=== PATIENT | male | born 1965 | race Caucasian/White ===

== ENCOUNTER 2021-05-08 09:24 | Day surgery (SDC) | payer BC, OTHER ==
[~2021-05-08 09:24] MED LIST: Albuterol 0.083% 2.5 MG/3 ML Neb Soln NEB PRN; HYDROmorphone 1 MG/ML Syringe IVPUSH PRN; Lactated Ringers 1,000 ML IV SCH; Metoclopramide 10 MG/2 ML SDV IVPUSH PRN; Morphine 2 MG/ML SYRINGE IVPUSH PRN; Naloxone 0.4 MG/ML SDV IVPUSH PRN; Ondansetron 4 MG/2 ML SDV IVPUSH PRN; Sodium Chloride 0.9% 10 ML Syringe FLUSH PRN; Sodium Chloride 0.9% 2.5 ML Syringe FLUSH PRN; Sodium Chloride 0.9% 20 ML SDV IV PRN; fentaNYL 100 MCG/2 ML SDV IVPUSH PRN
[2021-05-08] MEDS ORDERED: ceFAZolin 2 GM in Premix Bag 1 BAG IV ONE (10:18)
[2021-05-08] MEDS ORDERED: Bupivacaine 0.5% 30 ML SDV ONE (10:37)
[2021-05-08] MEDS ORDERED: Dexmedetomidine 200 MCG/2 ML SDV ONE (10:49)
[2021-05-08] MEDS ORDERED: Rocuronium Bromide 50 MG/5 ML Syringe ONE (10:49)
[2021-05-08] MEDS ORDERED: Lidocaine 2% 100 MG/5 ML Syringe ONE (10:49)
[2021-05-08] MEDS ORDERED: Dexamethasone 4 MG/ML 5 ML MDV ONE (10:49)
[2021-05-08] MEDS ORDERED: Propofol 200 MG/20 ML SDV ONE ×2 (10:50→13:59)
[2021-05-08] MEDS ORDERED: fentaNYL 100 MCG/2 ML SDV ONE ×2 (10:50→13:59)
[2021-05-08] MEDS ORDERED: Sodium Chloride 0.9% 20 ML ONE (10:53)
[2021-05-08] MEDS ORDERED: Midazolam 1 MG/ML 2 ML SDV ONE (10:55)
--- NOTE | 2021-05-08 11:14 | PCM.PREANE ---
Preanesthetic Assessment - Anesthesia/Transfusion/Family Hx Anesthesia History: Prior Anesthesia Without Reaction Family History of Anesthesia Reaction: No Transfusion History: No Prior Transfusion(s) - Review of Systems General: No Symptoms Pulmonary: No Symptoms Cardiovascular: No Symptoms Gastrointestinal: No Symptoms Neurological: No Symptoms Other: Reports: None - Physical Assessment NPO Status Date: 05/07/21 NPO Status Time: 21:00 Vital Signs: Last Vital Signs Temp 36 C L 05/08/21 09:44 Pulse 72 05/08/21 09:44 Resp 16 05/08/21 09:44 BP 141/77 H 05/08/21 09:44 Pulse Ox 100 05/08/21 09:44 Height: 5 ft 8 in Weight: 78.018 kg ASA Class: 3 Mental Status: Alert & Oriented x3 Dentition: Reports: Normal Dentition Thyro-Mental Finger Breadths: 3 Mouth Opening Finger Breadths: 3 ROM/Head Extension: Full Lungs: Clear to Auscultation, Normal Respiratory Effort Cardiovascular: Regular Rate, Regular Rhythm - Allergies Allergies/Adverse Reactions: Allergies Allergy/AdvReac Type Severity Reaction Status Date / Time No Known Allergies Allergy Verified 05/02/21 09:51 - Acknowledgements Anesthesia Type Planned: General Anesthesia Pt an Appropriate Candidate for the Planned Anesthesia: Yes Alternatives and Risks of Anesthesia Discussed w Pt/Guardian: Yes Pt/Guardian Understands and Agrees with Anesthesia Plan: Yes PreAnesthesia Questionnaire HEENT History: Reports: Other (See Below) Other HEENT History: wears glasses Cardiovascular History: Reports: Hypertension Respiratory History: Reports: None Gastrointestinal History: Reports: GERD, Hepatitis Other Gastrointestinal History: hx of hepatitis C, has been treated Genitourinary History: Reports: None Musculoskeletal History: Reports: Fracture, Osteoarthritis Other Musculoskeletal History: hx fx leg Neurological History: Reports: None Psychiatric History: Reports: None Endocrine/Metabolic History: Reports: None Hematologic History: Reports: None Immunologic History: Reports: None Oncologic (Cancer) History: Reports: None Dermatologic History: Reports: None - Past Surgical History Head Surgeries/Procedures: Reports: None HEENT Surgical History: Reports: None Cardiovascular Surgical History: Reports: None Respiratory Surgical History: Reports: None GI Surgical History: Reports: Hernia, Abdominal, Hernia, Inguinal Male Surgical History: Reports: None Endocrine Surgical History: Reports: None Neurological Surgical History: Reports: None Musculoskeletal Surgical History: Reports: Knee Replacement Other Musculoskeletal Surgeries/Procedures:: ryan knee replacements Oncologic Surgical History: Reports: None Dermatological Surgical History: Reports: None - SUBSTANCE USE Tobacco Use Status *Q: Current Every Day Tobacco User Tobacco Use Within Last Twelve Months: Cigarettes - HOME MEDS Home Medications: Home Meds Lisinopril/Hydrochlorothiazide [Lisinopril-Hctz 20-25 mg Tab] 1 tab PO DAILY 05/02/21 [History] Multivitamin 1 tab PO DAILY 05/02/21 [History] Omeprazole 20 mg PO DAILY 05/02/21 [History] Tamsulosin HCl 0.4 mg PO DAILY 05/02/21 [History] amLODIPine Besylate [Amlodipine Besylate] 5 mg PO DAILY 05/02/21 [History] - CURRENT (IN HOUSE) MEDS Current Meds: Current Medications Albuterol (Albuterol 0.083% 2.5 Mg/3 Ml Neb Soln) 2.5 mg NEB ONETIME PRN PRN Reason: Wheezing Droperidol (Droperidol 5 Mg/2 Ml Sdv) 0.625 mg IVPUSH ONETIME PRN PRN Reason: Nausea/Vomiting Fentanyl (Fentanyl 100 Mcg/2 Ml Sdv) 50 mcg IVPUSH Q5M PRN PRN Reason: Pain (mild 1-3) Hydromorphone HCl (Hydromorphone 1 Mg/Ml Syringe) 1 mg IVPUSH Q10M PRN PRN Reason: Pain (moderate 4-6) Lactated Ringer's (Ringers, Lactated) 1,000 mls @ 125 mls/hr IV ASDIRECTED THELMA Last Admin: 05/08/21 09:49 Dose: 125 mls/hr Documented by: Metoclopramide HCl (Metoclopramide 10 Mg/2 Ml Sdv) 10 mg IVPUSH ONETIME PRN PRN Reason: Nausea/Vomiting Morphine Sulfate (Morphine 2 Mg/Ml Syringe) 2 mg IVPUSH Q10M PRN PRN Reason: Pain (severe 7-10) Naloxone HCl (Naloxone 0.4 Mg/Ml Sdv) 0.1 mg IVPUSH ASDIRECTED PRN PRN Reason: Respiratory Depression Ondansetron HCl (Ondansetron 4 Mg/2 Ml Sdv) 4 mg IVPUSH ONETIME PRN PRN Reason: Nausea/Vomiting Sodium Chloride (Sodium Chloride 0.9% 10 Ml Syringe) 10 ml FLUSH ASDIRECTED PRN PRN Reason: Keep Vein Open Sodium Chloride (Sodium Chloride 0.9% 2.5 Ml Syringe) 2.5 ml FLUSH ASDIRECTED PRN PRN Reason: Keep Vein Open Sodium Chloride (Sodium Chloride 0.9% 20 Ml Sdv) 10 ml IV ASDIRECTED PRN PRN Reason: IV Use Discontinued Medications Bupivacaine HCl (Bupivacaine 0.5% 30 Ml Sdv) Confirm Administered Dose 30 ml .ROUTE .STK-MED ONE Stop: 05/08/21 10:38 Dexamethasone (Dexamethasone 4 Mg/Ml 5 Ml Mdv) Confirm Administered Dose 20 mg .ROUTE .STK-MED ONE Stop: 05/08/21 10:50 Dexmedetomidine HCl (Dexmedetomidine 200 Mcg/2 Ml Sdv) Confirm Administered Dose 200 mcg .ROUTE .STK-MED ONE Stop: 05/08/21 10:50 Fentanyl (Fentanyl 100 Mcg/2 Ml Sdv) Confirm Administered Dose 100 mcg .ROUTE .STK-MED ONE Stop: 05/08/21 10:51 Cefazolin Sodium/Dextrose 2 gm (/ Premix) 50 mls @ 100 mls/hr IV ONETIME ONE Stop: 05/08/21 10:47 Sodium Chloride (Normal Saline) Confirm Administered Dose 20 mls @ as directed .ROUTE .ST-MED ONE Stop: 05/08/21 10:54 Lidocaine HCl (Lidocaine 1% 5 Ml Sdv) Confirm Administered Dose 5 ml .ROUTE .STK-MED ONE Stop: 05/08/21 10:50 Lidocaine HCl (Lidocaine 2% 100 Mg/5 Ml Syringe) Confirm Administered Dose 100 mg .ROUTE .STK-MED ONE Stop: 05/08/21 10:50 Midazolam HCl (Midazolam 1 Mg/Ml 2 Ml Sdv) Confirm Administered Dose 2 mg .ROUTE .STK-MED ONE Stop: 05/08/21 10:56 Propofol (Propofol 200 Mg/20 Ml Sdv) Confirm Administered Dose 200 mg .ROUTE .STK-MED ONE Stop: 05/08/21 10:51 Rocuronium Alplaus (Rocuronium Alplaus 50 Mg/5 Ml Syringe) Confirm Administered Dose 50 mg .ROUTE .STK-MED ONE Stop: 05/08/21 10:50
[2021-05-08] MEDS ORDERED: ePHEDrine 50 MG/ML SDV ONE (12:55)
[2021-05-08] MEDS ORDERED: Ondansetron 4 MG/2 ML SDV ONE (13:08)
[2021-05-08] MEDS ORDERED: Ketorolac 30 MG/ML SDV ONE (13:08)
[2021-05-08] MEDS ORDERED: Sugammadex Sodium 200 MG/2 ML VIAL ONE (13:08)
[2021-05-08] MEDS ORDERED: Octyl 2-Cyanoacrylate 1 Tube ONE (13:27)
[2021-05-08] MEDS ORDERED: Lidocaine 2% 5 ML SDV ONE (13:58)
--- NOTE | 2021-05-08 14:03 | PCM48HPAN ---
Post Anesthesia Note - EVALUATION WITHIN 48HRS OF ANESTHETIC Vital Signs in Normal Range: Yes Patient Participated in Evaluation: Yes Respiratory Function Stable: Yes Airway Patent: Yes Cardiovascular Function Stable: Yes Hydration Status Stable: Yes Pain Control Satisfactory: Yes Nausea and Vomiting Control Satisfactory: Yes Mental Status Recovered: Yes Vital Signs: Last Vital Signs Temp 99.1 F 05/08/21 13:49 Pulse 55 L 05/08/21 13:59 Resp 10 L 05/08/21 13:59 BP 107/60 05/08/21 13:59 Pulse Ox 95 05/08/21 13:59
--- NOTE | 2021-05-08 14:03 | PCM.POSTAN ---
POST ANESTHESIA ASSESSMENT - MENTAL STATUS Mental Status: Alert, Oriented - VITAL SIGNS Vital Signs: Last Vital Signs Temp 99.1 F 05/08/21 13:49 Pulse 55 L 05/08/21 13:59 Resp 10 L 05/08/21 13:59 BP 107/60 05/08/21 13:59 Pulse Ox 95 05/08/21 13:59 - RESPIRATORY Respiratory Status: Respiratory Rate WNL, Airway Patent, O2 Saturation Stable - CARDIOVASCULAR CV Status: Pulse Rate WNL, Blood Pressure Stable - GASTROINTESTINAL GI Status: No Symptoms - POST OP HYDRATION Hydration Status: Adequate & Stable
--- NOTE | 2021-05-08 16:01 | PCM.OPNOTE ---
- General Post-Op/Procedure Note Date of Surgery/Procedure: 05/08/21 Operative Procedure(s): Recurrent ventral hernia repair Findings: 2 cm umbilical fascial defect containing omentum Pre Op Diagnosis: Recurrent ventral hernia Post-Op Diagnosis: same Anesthesia Technique: General ET Tube Primary Surgeon: Mel Cole Fluid Replacement, Intraop: 1,200 EBL in mLs: 10 Condition: Good Free Text/Narrative:: Intake & Output 05/08/21 05/08/21 05/08/21 06:59 14:59 22:59 Intake Total 1550 Balance 1550
--- NOTE | 2021-05-09 23:47 | OR ---
SURGEON: MEL COLE MD DATE OF PROCEDURE: 05/08/2021 PREOPERATIVE DIAGNOSIS: Recurrent ventral hernia. POSTOPERATIVE DIAGNOSIS: Recurrent ventral hernia. PROCEDURE PERFORMED: Repair of recurrent ventral hernia with mesh. PRIMARY SURGEON: Mel Cole MD ANESTHESIA: General endotracheal anesthesia. FLUIDS: 1200 mL of crystalloid. ESTIMATED BLOOD LOSS: 10 mL. FINDINGS: 2 cm fascial defect along the umbilical stalk. Hernia sac containing a large amount of incarcerated omentum. COMPLICATIONS: None. INDICATIONS: The patient is a 55-year-old male with a previous history of a large lower ventral hernia repair performed with mesh. The patient has lost a significant amount of weight and has been working out. He noticed a bulge along the umbilicus. This has gotten large over time. It is now very painful. CT scan showed a large hernia sac with a small fascial defect containing omentum. The patient and I discussed the need for a repair. I explained the procedure, expected perioperative course, as well as the possibility of mesh versus a non- mesh repair. I explained the risks including bleeding, infection, or damage to surrounding structures. The patient verbalized understanding and wishes to proceed. PROCEDURE IN DETAIL: The patient was brought into the OR and placed on the OR table in supine position. A time-out was completed verifying the patient's name, age, date of , allergies, and procedure to be performed. General endotracheal anesthesia was induced. The abdomen was prepped and draped in usual standard fashion. On inspection, I could feel that the hernia sac was located just to the left of the umbilicus. I anesthetized the skin using 0.5% Marcaine plain. A 15 blade was used to make an incision around the left side of the umbilicus and carried down to the previous lower midline incision. Cautery was used to dissect down to the subcutaneous fat layer. I immediately encountered a hernia sac. Using blunt dissection as well as the Metzenbaum scissors, I dissected the hernia sac free from the surrounding soft tissue. The hernia sac itself was quite large, but as I got closer to the fascia, I noted that the neck of the hernia sac was quite narrow. I opened the hernia sac and it contained a large amount of omentum. The omental adhesions to the hernia sac were taken down using electrocautery and sharp dissection with the Metzenbaum scissors. Once the hernia sac was freed from the omentum, I transected the hernia sac and removed it from the field using a Harmonic scalpel device. I attempted to reduce the omentum back into the abdomen through the fascial defect, however, I was unable to do so. I transected the omentum close to the fascial defect using a Harmonic scalpel device. It was sent with the hernia sac to Pathology labeled as hernia sac and contents. The omental edge was inspected and found to be hemostatic. The cut edge of the omentum was unable to be reduced back into the abdomen. Using Metzenbaum scissors, I cleared away any scar tissue along the underside of the fascia next to the fascial defect. The fascial defect was measured and found to be 2 cm in size. I palpated within the abdomen. The patient's previous mesh was well incorporated and at least 1 to 2 cm below the new defect. Given the fascial defect size, the decision was made to close this with mash. A 4-cm Ventralex hernia patch was brought into the field. This was placed as an underlay within the abdomen and secured at 4 points with interrupted 0 Ethibond sutures. The fascial defect was then closed over the top of this with interrupted 0 Ethibond sutures. A Valsalva maneuver was performed and the repair appeared to be intact. I irrigated the wound. Hemostasis was achieved with electrocautery. The wound was then closed with interrupted 3-0 Vicryl sutures in the subcutaneous fat space. The skin was then closed with a running 4-0 Monocryl stitch. Dermabond and sterile dressings were applied. The patient tolerated the procedure well, was extubated, and taken to PACU in stable condition. DIVINE GENAO /[id number]
== END 2021-05-08 15:27 | disposition home or self-care (01) ==
LOC: MW.SDS 09:24
PROVIDERS: ATTEND Surgery
DX: K43.2 Incisional hernia without obstruction or gangrene (principal); K21.9 Gastro-esophageal reflux disease without esophagitis; I10 Essential (primary) hypertension; J44.9 Chronic obstructive pulmonary disease, unspecified; Z79.899 Other long term (current) drug therapy; Z98.890 Other specified postprocedural states
CPT/HCPCS: 49565; 49568; A9270; C1781; J0131; J1100; J1885; J2250; J2405; J2704; J3010; J3490; J7120; 00750

== ENCOUNTER 2021-10-16 13:03 | Day surgery (SDC) | payer BC ==
[~2021-10-16 13:03] MED LIST changes: -Albuterol 0.083% 2.5 MG/3 ML Neb Soln NEB PRN; -HYDROmorphone 1 MG/ML Syringe IVPUSH PRN; -Metoclopramide 10 MG/2 ML SDV IVPUSH PRN; -Morphine 2 MG/ML SYRINGE IVPUSH PRN; -Naloxone 0.4 MG/ML SDV IVPUSH PRN; -Ondansetron 4 MG/2 ML SDV IVPUSH PRN; +ceFAZolin 2 GM in Premix Bag 1 BAG IV ONE; -fentaNYL 100 MCG/2 ML SDV IVPUSH PRN
[2021-10-16] MEDS ORDERED: fentaNYL 100 MCG/2 ML SDV IVPUSH PRN (13:57)
[2021-10-16] MEDS ORDERED: Naloxone 0.4 MG/ML SDV IVPUSH PRN (13:57)
[2021-10-16] MEDS ORDERED: Metoclopramide 10 MG/2 ML SDV IVPUSH PRN (13:57)
[2021-10-16] MEDS ORDERED: HYDROmorphone 1 MG/ML Syringe IVPUSH PRN (13:57)
[2021-10-16] MEDS ORDERED: Albuterol 0.083% 2.5 MG/3 ML Neb Soln NEB PRN (13:57)
[2021-10-16] MEDS ORDERED: Ondansetron 4 MG/2 ML SDV IVPUSH PRN (13:57)
[2021-10-16] MEDS ORDERED: Octyl 2-Cyanoacrylate 1 Tube ONE (14:08)
[2021-10-16] MEDS ORDERED: Bupivacaine 0.5% 30 ML SDV ONE (14:08)
[2021-10-16] MEDS ORDERED: Propofol 200 MG/20 ML SDV ONE (15:09)
[2021-10-16] MEDS ORDERED: ceFAZolin 1 GM Vial ONE (15:09)
[2021-10-16] MEDS ORDERED: fentaNYL 250 MCG/5 ML SDV ONE (15:09)
[2021-10-16] MEDS ORDERED: fentaNYL 100 MCG/2 ML SDV ONE (15:10)
[2021-10-16] MEDS ORDERED: HYDROmorphone 2 MG/ML Syringe ONE (15:23)
== END 2021-10-16 16:55 | disposition home or self-care (01) ==
LOC: MW.SDS 13:03
PROVIDERS: ATTEND Surgery
DX: K40.91 Unilateral inguinal hernia, without obstruction or gangrene, recurrent (principal); I10 Essential (primary) hypertension; K21.9 Gastro-esophageal reflux disease without esophagitis; F17.210 Nicotine dependence, cigarettes, uncomplicated
CPT/HCPCS: 49520; A9270; C1781; J0690; J1170; J2704; J3010; J3490; J7120

== ENCOUNTER 2021-11-13 06:38 | Day surgery (SDC) | payer BC ==
[~2021-11-13 06:38] MED LIST changes: -ceFAZolin 2 GM in Premix Bag 1 BAG IV ONE
[2021-11-13] MEDS ORDERED: Metoclopramide 10 MG/2 ML SDV IVPUSH PRN (06:53)
[2021-11-13] MEDS ORDERED: Ondansetron 4 MG/2 ML SDV IVPUSH PRN (06:53)
[2021-11-13] MEDS ORDERED: Albuterol 0.083% 2.5 MG/3 ML Neb Soln NEB PRN (06:53)
[2021-11-13] MEDS ORDERED: HYDROmorphone 1 MG/ML Syringe IVPUSH PRN (06:53)
[2021-11-13] MEDS ORDERED: Naloxone 0.4 MG/ML SDV IVPUSH PRN (06:53)
[2021-11-13] MEDS ORDERED: Bupivacaine 0.5% 30 ML SDV ONE (07:18)
[2021-11-13] MEDS ORDERED: Octyl 2-Cyanoacrylate 1 Tube ONE (07:18)
[2021-11-13] MEDS ORDERED: Ondansetron 4 MG/2 ML SDV ONE (07:28)
[2021-11-13] MEDS ORDERED: Lidocaine 2% 5 ML SDV ONE (07:28)
[2021-11-13] MEDS ORDERED: Dexamethasone 4 MG/ML 5 ML MDV ONE (07:28)
[2021-11-13] MEDS ORDERED: Propofol 200 MG/20 ML SDV ONE (07:28)
[2021-11-13] MEDS ORDERED: Midazolam 1 MG/ML 2 ML SDV ONE (07:28)
[2021-11-13] MEDS ORDERED: fentaNYL 100 MCG/2 ML SDV ONE ×2 (07:28→09:21)
[2021-11-13] MEDS ORDERED: Ropivacaine 0.5% 5 MG/ML 30 ML SDV ONE (07:54)
[2021-11-13] MEDS ORDERED: Rocuronium Bromide 50 MG/5 ML Syringe ONE (07:56)
[2021-11-13] MEDS ORDERED: Sugammadex Sodium 200 MG/2 ML VIAL ONE (07:56)
[2021-11-13] MEDS ORDERED: ceFAZolin 2 GM in Premix Bag 1 BAG IV ONE (08:00)
[2021-11-13] MEDS ORDERED: Water For Injection, Sterile 20 ML ONE (08:32)
[2021-11-13] MEDS ORDERED: ePHEDrine 50 MG/ML SDV ONE (08:32)
[2021-11-13] MEDS ORDERED: Ketorolac 30 MG/ML SDV ONE (09:08)
[2021-11-13] MEDS: fentaNYL 100 MCG/2 ML SDV IVPUSH PRN ×2 (10:39→10:44)
== END 2021-11-13 11:35 | disposition home or self-care (01) ==
LOC: MW.SDS 06:38
PROVIDERS: ATTEND Surgery
DX: K40.91 Unilateral inguinal hernia, without obstruction or gangrene, recurrent (principal); J44.9 Chronic obstructive pulmonary disease, unspecified; K21.9 Gastro-esophageal reflux disease without esophagitis; I10 Essential (primary) hypertension; F17.210 Nicotine dependence, cigarettes, uncomplicated; Z79.899 Other long term (current) drug therapy; Z98.890 Other specified postprocedural states
CPT/HCPCS: 49520; A9270; C1781; J0131; J0690; J1100; J1885; J2250; J2405; J2704; J2795; J3010; J3490; J7120; 00830; 64486

== ENCOUNTER 2022-11-02 10:53 | Emergency (ER) | payer SELFPAY ==
[2022-11-02] MEDS ORDERED: Sodium Chloride 0.9% 10 ML Syringe FLUSH PRN (12:08)
[2022-11-02] MEDS ORDERED: Sodium Chloride 0.9% 2.5 ML Syringe FLUSH PRN (12:08)
[2022-11-02] MEDS ORDERED: Sodium Chloride 0.9% 1,000 ML IV ONE (12:11)
[2022-11-02] MEDS ORDERED: Morphine 4 MG/ML Syringe IVPUSH PRN (12:11)
[2022-11-02 12:17] LABS: BASOPHILS PERCENT AUTO 0.1 % (0.0-1.5); EOSINOPHILS PERCENT AUTO 0.1 % (0.0-7.0); HEMATOCRIT 44.1 % (38.0-50.0); HEMOGLOBIN 15.5 g/dL (13.0-17.0); LYMPHOCYTES ABSOLUTE AUTO 0.8 K/uL (0.6-2.4); LYMPHOCYTES PERCENT AUTO 9.9 % (16.0-40.0); MEAN CORPUSCULAR HEMOGLOBIN 33.1 pg (27.0-32.0); MEAN CORPUSCULAR HGB CONC 35.1 g/dL (31.0-37.0); MEAN CORPUSCULAR VOLUME 94.2 fL (80.0-98.0); MONOCYTES ABSOLUTE AUTO 0.5 K/uL (0.0-0.8); MONOCYTES PERCENT AUTO 5.6 % (0.0-15.0); NEUTROPHILS ABSOLUTE AUTO 6.9 K/uL (1.4-5.7); NEUTROPHILS PERCENT AUTO 84.3 % (48.0-80.0); NRBC ABSOLUTE 0 K/uL; PLATELET COUNT,PLT 274 K/uL (150-400); RED BLOOD CELL COUNT 4.68 M/uL (4.50-5.90); WHITE BLOOD CELL COUNT,WBC 8.16 K/uL (4.0-11.0)
[2022-11-02 12:26] LABS: A/G RATIO 0.8 (0.9-1.6); ALBUMIN 3.8 g/dL (3.4-5.0); BILIRUBIN TOTAL 0.9 mg/dL (0.2-1.0); CALCIUM 9.8 mg/dL (8.5-10.1); CARBON DIOXIDE,CO2 31.4 mmol/L (21.0-32.0); EST CRCL DRUG DOSING (CG) 76.54 mL/min; POTASSIUM,K 4.2 mmol/L (3.5-5.1); PROTEIN TOTAL,TP 8.6 g/dL (6.4-8.2)
[2022-11-02] MEDS ORDERED: Iopamidol 755 MG/ML 500 ML Multipack Bottle IVPUSH ONE (13:12)
== END 2022-11-02 15:47 | disposition home or self-care (01) ==
LOC: MW.ED 10:53
DX: R10.84 Generalized abdominal pain (principal); I10 Essential (primary) hypertension; K21.9 Gastro-esophageal reflux disease without esophagitis; F17.210 Nicotine dependence, cigarettes, uncomplicated; Z79.899 Other long term (current) drug therapy
CPT/HCPCS: 36415; 74177; 80053; 83605; 85025; 96361; 96374; 99284; J2270; J3490; J7030; Q9967; 99283